=== PATIENT | female | born 1940 | race Caucasian/White ===

== ENCOUNTER 2016-12-24 09:17 | Emergency (ER) | payer MEDICARE ==
[2016-12-24] MEDS ORDERED: LORAZEPAM 2 MG/ML 1ML SDV ONE (10:00)
[2016-12-24 10:13] LABS: ABSOLUTE NEUTROPHIL COUNT 4.6 K/mm3 (1.8-7.7); BASO % 0.6 % (0.2-1.0); EOS # 0.2 (0.0-0.5); EOS % 3.2 % (0.9-2.9); HEMATOCRIT 37.3 % (37.0-47.0); HEMOGLOBIN 11.8 gm/l (12.0-16.0); IMM NEUT% 0.5 % (0-1); LYMPH # 1.3 (1.0-4.8); LYMPH % 19.2 % (15-45); MEAN CELL VOLUME 96.9 fl (81.0-99.0); MEAN CORPUSCULAR HEMOGLOBIN 30.6 pg (27.0-31.0); MEAN CORPUSCULAR HGB CONC 31.6 g/dl (33.0-37.0); MONO # 0.4 (0.0-0.8); MONO % 5.4 % (4-12); NEUT % 71.1 % (43-75); PLATELET COUNT 166 K/mm3 (130-400); RED CELL DISTRIBUTION WIDTH 14.2 % (11.5-14.5)
[2016-12-24 10:17] LABS: ALB/GLOB RATIO 1.1 (>1.0); ALBUMIN 3.9 gm/dL (3.5-5.7); CALCIUM 9.8 mg/dL (8.6-10.3)
--- NOTE | 2016-12-24 10:41 | RAD ---
CHEST - 2 VIEWS COMPARISON: Chest 2 views, 11/28/2016 HISTORY: Right shoulder pain since this morning, with vomiting. FINDINGS: Views: Frontal and lateral chest Lungs: No acute finding. Subsegmental atelectasis or scarring in both lung bases. Heart and vessels: Normal heart and pulmonary artery size. Elongated thoracic aorta. Trachea and bronchi: Normal Mediastinum and minerva: Normal Costophrenic sulci: Normal Chest wall and bones: Sternotomy wires. Thoracic hyperkyphosis. Upper abdomen: Normal. IMPRESSION: 1. No acute finding. Subsegmental atelectasis or scarring in both lung bases. Atherosclerosis of the thoracic aorta.
[2016-12-24 10:57] LABS: URINE BILIRUBIN NEGATIVE (NEGATIVE); URINE BLOOD 1+ (NEGATIVE); URINE GLUCOSE (UA) 3+ (NEGATIVE); URINE LEUKOCYTE ESTERASE 1+ (NEGATIVE); URINE NITRITE NEGATIVE (NEGATIVE); URINE PROTEIN 1+ (NEGATIVE); URINE UROBILINOGEN NORMAL (0-1 mg/dl)
[2016-12-24 11:03] LABS: URINE APPEARANCE HAZY; URINE COLOR LIGHT YELLOW
[2016-12-24 11:04] LABS: URINE RBC 0 /hpf
[2016-12-24 11:05] LABS: URINE EPITHELIAL CELLS 0-1 /hpf; URINE WBC 25-30 /hpf
[2016-12-24 11:06] LABS: URINE BACTERIA RARE
[2016-12-24] MEDS ORDERED: OXYCODONE/ACETAMINOPHEN 5/325 MG TABLET ONE (11:11)
[2016-12-24] MEDS ORDERED: ONDANSETRON 4 MG ODT TAB ONE (11:11)
[2016-12-24] MEDS ORDERED: CEPHALEXIN 500 MG CAPSULE ONE (11:22)
== END 2016-12-24 12:05 | disposition home or self-care (01) ==
LOC: ED 09:17
DX: I25.10 Atherosclerotic heart disease of native coronary artery without angina pectoris (principal); E03.9 Hypothyroidism, unspecified; E78.5 Hyperlipidemia, unspecified; E78.00 Pure hypercholesterolemia, unspecified